=== PATIENT | male | born 1965 | race Caucasian/White ===

== ENCOUNTER 2023-08-07 22:50 | Emergency (ER) | payer BC ==
[2023-08-07] MEDS: Lidocaine 2% Viscous Solution 15 ML UD PO ONE (23:38)
[2023-08-07] MEDS: Benzocaine 20% Topical Spray UD MUCMEM ONE (23:38)
[2023-08-08 00:07] LABS: ACETAMINOPHEN <2.0 ug/mL; ALANINE AMINOTRANSFERASE,ALT 23 IU/L (14-63); ALBUMIN 3.9 g/dL (3.4-5.0); ALKALINE PHOSPHATASE 97 U/L (46-116); ASPARTATE AMNIOTRANSFERASE,AST 13 IU/L (15-37); BILIRUBIN TOTAL 0.3 mg/dL (0.2-1.0); BLOOD UREA NITROGEN,BUN 13 mg/dL (7.0-18.0); CALCIUM 9.5 mg/dL (8.5-10.1); CARBON DIOXIDE,CO2 27.3 mmol/L (21.0-32.0); CHLORIDE,CL 102 mmol/L (98-107); CREATININE 1.5 mg/dL (0.8-1.3); EST CRCL DRUG DOSING (CG) 51.93 mL/min; GLUCOSE RANDOM 133 mg/dL (74-106); POTASSIUM,K 4.5 mmol/L (3.5-5.1); PROTEIN TOTAL,TP 7.7 g/dL (6.4-8.2); SODIUM,NA 139 mmol/L (136-148)
[2023-08-08 00:10] LABS: ESTIMATED GFR 54 mL/min (>60)
[2023-08-08] MEDS: oxyCODONE ER 10 MG TAB.ER PO ONE ×2 (00:18→00:35)
== END 2023-08-08 00:36 | disposition home or self-care (01) ==
LOC: MW.ED 22:50
DX: K08.89 Other specified disorders of teeth and supporting structures (principal); Z91.018 Allergy to other foods; Z79.899 Other long term (current) drug therapy; Z87.891 Personal history of nicotine dependence; Z75.8 Other problems related to medical facilities and other health care
CPT/HCPCS: 36415; 80053; 80143; 99283; A9270